=== PATIENT | male | born 1975 | race Caucasian/White ===

== ENCOUNTER → 2020-01-15 09:16 | Outpatient (BNVA) | payer OTHER, SELFPAY | PROVIDERS: Family Provider Nurse Practitioner Family; PCP Nurse Practitioner Family; Visit Provider Urology | DX: E29.1 Testicular hypofunction (principal); N41.1 Chronic prostatitis; N52.8 Other male erectile dysfunction | CPT/HCPCS: 81001 ==

== ENCOUNTER 2020-06-13 12:45 | Outpatient (CLI) | payer OTHER, SELFPAY ==
--- NOTE | 2020-06-13 13:00 | MR_ITS ---
WS: [id number] MRI LUMBAR SPINE NONCONTRAST TECHNIQUE: Sagittal T1, T2 and STIR imaging. Axial T1 and T2 imaging. CLINICAL INFORMATION: M51.16 Intervertebral disc disorders with radiculopathy, ... COMPARISON: MRI and CT FINDINGS: Mild lumbar curve. No acute compression. No high-grade central canal stenosis. L1-L2: Normal. L2-L3: Mild disc bulging with endplate ridging. Mild facet arthropathy. Spinal canal and foramen are patent. L3-L4: Mild disc bulging with slight impingement on the right subarticular recess and traversing righ t L4 nerve root. Mild facet arthropathy. Mild right greater than left foraminal narrowing. L4-L5: Mild disc bulging with a tiny shallow central protrusion. Slight effacement of ventral thecal sac. Mild to moderate facet arthropathy. Mild left foraminal narrowing. L5-S1: Right pericentral protrusion with slight impingement on the right S1 nerve root. Mild right an d no left foraminal narrowing. Mild facet arthropathy. Partially visualized right renal cyst measuring 1.7 CM. Visualized pelvic bony structures: Normal. Paravertebral soft tissues: Normal. MR/MR lumbar spine wo con* [id number] IMPRESSION: 1. Mild lumbar curve. No acute compression. No high-grade central canal stenos is. 2. Shallow disc protrusion L3-4 impinges the right subarticular recess with mi ld right foraminal narrowing. 3. Shallow central protrusion L4-5 with slight effacement of ventral thecal sa c and narrowing of the subarticular recess. Mild left foraminal narrowing. 4. Shallow right pericentral protrusion L5-S1 impinges the traversing right S1 nerve root. Recommend correlation for right S1 nerve root symptoms. Mild right foraminal narrowing. 5. Mild facet arthropathy L3-L5. 6. Overall no significant changes since 2019.
--- NOTE | 2020-06-13 13:00 | MR_ITS ---
WS: [id number] MRI THORACIC SPINE WITHOUT CONTRAST TECHNIQUE: Sagittal T1, T2 and STIR imaging. Axial T2 imaging. Noncontrast imaging obtained. CLINICAL INFORMATION: M51.16 Intervertebral disc disorders with radiculopathy, ... COMPARISON: None. FINDINGS: Mild thoracic curve. Mild thoracic kyphosis. No acute compression. No high-grade central canal stenos is. Cord signal is normal. A few Schmorl's nodes in the mid and lower thoracic spine. Mild chronic an terior wedging in the mid thoracic spine at T6 and T7. T2-3: Mild disc bulge with mild central canal stenosis. Mild facet arthropathy. Foramen are patent. T3-4: Tiny central disc protrusion. Mild facet arthropathy. Spinal canal and foramen are patent. T4-5: Tiny central disc protrusion. Spinal canal and foramen are patent. T5-6: Tiny central disc protrusion. Spinal canal and foramen are patent. Moderate facet arthropathy in the lower thoracic spine. Left renal cyst. Normal thoracic aorta.. MR/MR thoracic spin wo con* [id number] IMPRESSION: 1. Mild thoracic curve. Mild thoracic kyphosis. No acute compression. 2. Shallow central disc protrusion T2-3 with mild central canal stenosis. 3. Tiny central protrusions at T3-T4, T4-T5 and T5-T6 without significant spin al canal narrowing. 4. Chronic anterior wedging at T6-T7. No acute compression fractures. 5. Mild to moderate facet arthropathy lower thoracic spine.
--- NOTE | 2020-06-13 13:45 | XR_ITS ---
WS: [id number] Lumbar spine with flexion, extension, and neutral lateral, 06/13/2020 Clinical Data: lumbar pain Comparison: None. Findings: No compression fractures or subluxation is seen. No disc space narrowing is seen. No limitation of motion or subluxation is seen on flexion or extension.. There are limbus vertebra at L3 and L4. XR/XR lumbar spine f/e only [id number] Impression: Negative lateral lumbar spine.
--- NOTE | 2020-06-13 14:00 | XR_ITS ---
WS: [id number] Thoracic spine, 3 views, 06/13/2020 Clinical Data: thoracic pain Comparison: None. Findings: No compression fractures are seen. The disc heights are normal. The paravertebral areas are normal. XR/XR thoracic spine 3V* [id number] Impression: Negative thoracic spine.
== END 2020-06-13 12:46 | disposition home or self-care (01) ==
LOC: RADWPI 12:47
PROVIDERS: Family Provider Nurse Practitioner Family; PCP Nurse Practitioner Family; Visit Provider Specialist
DX: M51.16 Intervertebral disc disorders with radiculopathy, lumbar region (principal); M51.24 Other intervertebral disc displacement, thoracic region; M48.54XA Collapsed vertebra, not elsewhere classified, thoracic region, initial encounter for fracture; M47.814 Spondylosis without myelopathy or radiculopathy, thoracic region; M47.816 Spondylosis without myelopathy or radiculopathy, lumbar region; M51.27 Other intervertebral disc displacement, lumbosacral region
CPT/HCPCS: 72072; 72120; 72146; 72148

== ENCOUNTER 2020-06-26 07:01 | Outpatient (RCR) | payer OTHER, SELFPAY | END 2020-06-26 14:28 | disposition home or self-care (01) | LOC: SPT 07:01 | PROVIDERS: PCP Nurse Practitioner Family; Referring Provider Specialist; Visit Provider Specialist | DX: M51.17 Intervertebral disc disorders with radiculopathy, lumbosacral region (principal) | CPT/HCPCS: 97750 ==

== ENCOUNTER → 2020-07-15 13:33 | Outpatient (BNVA) | payer OTHER, SELFPAY | PROVIDERS: PCP Nurse Practitioner Family; Visit Provider Urology | DX: E29.1 Testicular hypofunction (principal); N52.8 Other male erectile dysfunction | CPT/HCPCS: 81001 ==

== ENCOUNTER → 2020-11-29 12:46 | Outpatient (BNVA) | payer OTHER, SELFPAY | PROVIDERS: PCP Nurse Practitioner Family; Visit Provider Nurse Practitioner | DX: Z20.828 Contact with and (suspected) exposure to other viral communicable diseases (principal) | CPT/HCPCS: 87635 ==

== ENCOUNTER → 2021-03-09 08:17 | Outpatient (BNVA) | payer OTHER, SELFPAY | PROVIDERS: PCP Nurse Practitioner Family; Visit Provider Urology | DX: Z12.5 Encounter for screening for malignant neoplasm of prostate (principal); E29.1 Testicular hypofunction; N41.1 Chronic prostatitis; N52.8 Other male erectile dysfunction | CPT/HCPCS: 81003; 84403; G0103 ==

== ENCOUNTER → 2021-09-08 10:23 | Outpatient (BNVA) | payer OTHER, SELFPAY | PROVIDERS: PCP Nurse Practitioner Family; Visit Provider Urology | DX: N41.1 Chronic prostatitis (principal); E29.1 Testicular hypofunction; N52.8 Other male erectile dysfunction | CPT/HCPCS: 81003; 84403 ==

== ENCOUNTER → 2021-10-08 13:09 | Outpatient (BNVA) | payer OTHER, SELFPAY | PROVIDERS: PCP Nurse Practitioner Family; Visit Provider Nurse Practitioner Family | DX: E29.1 Testicular hypofunction (principal) | CPT/HCPCS: 81003; 84403 ==

== ENCOUNTER → 2021-12-08 11:05 | Outpatient (BNVA) | payer OTHER, SELFPAY | PROVIDERS: PCP Nurse Practitioner Family; Visit Provider Urology | DX: N52.8 Other male erectile dysfunction (principal); E29.1 Testicular hypofunction; N41.1 Chronic prostatitis | CPT/HCPCS: 81003; 84403 ==

== ENCOUNTER 2022-08-12 09:14 | Outpatient (CLI) | payer OTHER, SELFPAY ==
[2022-08-12 10:17] LABS: PSA Screen - Urology 0.79 ng/mL (0-4)
== END 2022-08-12 09:15 | disposition home or self-care (01) ==
LOC: LAB 09:16
PROVIDERS: PCP Nurse Practitioner Family; Visit Provider Urology
DX: Z12.5 Encounter for screening for malignant neoplasm of prostate (principal)
CPT/HCPCS: 36415; G0103

== ENCOUNTER → 2022-08-26 10:37 | Outpatient (BNVA) | payer OTHER, SELFPAY | PROVIDERS: PCP Nurse Practitioner Family; Visit Provider Urology | DX: E29.1 Testicular hypofunction (principal); N41.1 Chronic prostatitis; N52.8 Other male erectile dysfunction | CPT/HCPCS: 81003 ==

== ENCOUNTER → 2022-11-01 11:14 | Outpatient (BNVA) | payer OTHER, SELFPAY | PROVIDERS: PCP Nurse Practitioner Family; Visit Provider Urology | DX: E29.1 Testicular hypofunction (principal) | CPT/HCPCS: 84403; 85025 ==

== ENCOUNTER → 2022-11-08 13:15 | Outpatient (BNVA) | payer OTHER, SELFPAY | PROVIDERS: PCP Nurse Practitioner Family; Visit Provider Urology | DX: N41.1 Chronic prostatitis (principal); E29.1 Testicular hypofunction; N52.8 Other male erectile dysfunction | CPT/HCPCS: 81003 ==

== ENCOUNTER → 2023-02-21 09:38 | Outpatient (BNVA) | payer OTHER, SELFPAY | PROVIDERS: PCP Nurse Practitioner Family; Visit Provider Urology | DX: R79.89 Other specified abnormal findings of blood chemistry (principal); E29.1 Testicular hypofunction | CPT/HCPCS: 84403 ==

== ENCOUNTER 2023-03-08 11:06 | Outpatient (CLI) | payer OTHER, SELFPAY ==
[2023-03-08 12:29] LABS: Alanine Aminotransferase 28 U/L (0-41); Albumin Level 4.7 g/dL (3.5-5.2); Alkaline Phosphatase 69 U/L (40-130); Aspartate Amino Transferase 37 U/L (0-40); Chol HDL Ratio 2.62 mg/dL (1.0-5.00); Cholesterol 181 mg/dL (0-200); Globulin 2.6 g/dL (1.3-4.6); HDL Cholesterol 69 mg/dL (60-100); LDL Cholesterol Calculated 103 mg/dL (50-129); LDL HDL Ratio 1.49 RATIO (0.00-3.22); Total Bilirubin 0.5 mg/dL (0.15-1.2); Total Protein 7.3 g/dL (6.6-8.7); Triglycerides 47 mg/dL (0-150)
== END 2023-03-08 11:07 | disposition home or self-care (01) ==
PROVIDERS: PCP Nurse Practitioner Family; Visit Provider Internal Medicine Cardiovascular Disease
DX: E78.5 Hyperlipidemia, unspecified (principal)
CPT/HCPCS: 36415; 80061; 80076; 81003

== ENCOUNTER → 2023-07-28 11:32 | Outpatient (BNVA) | payer OTHER, SELFPAY | PROVIDERS: PCP Nurse Practitioner Family; Visit Provider Internal Medicine Pulmonary Disease | DX: J30.2 Other seasonal allergic rhinitis (principal); R06.02 Shortness of breath; J40 Bronchitis, not specified as acute or chronic | CPT/HCPCS: 82785; 85025; 86003 ==

== ENCOUNTER 2023-08-17 08:53 | Outpatient (CLI) | payer OTHER, SELFPAY ==
--- NOTE | 2023-08-17 09:00 | CT_ITS ---
WS: [id number] CT CHEST TECHNIQUE: Noncontrast CT of the chest with coronal and sagittal reformatted images. CLINICAL INFORMATION: Chronic bronchitis COMPARISON: None. DLP: 451.[address] scans at [facility] use at least one of these dose optimization techniques: automated e xposure control; mA and/or kV adjustment per patient size (includes targeted exams where dose is matc hed to clinical indication); or iterative reconstruction. FINDINGS: Lungs are well aerated. No acute pulmonary infiltrates. No focal pneumonia or pleural fluid. No suspi cious pulmonary parenchymal opacities. A few calcified granulomas. Normal caliber thoracic aorta. No axillary lymphadenopathy. Diffuse fatty filtration of the liver. Adrenal glands are normal. Noncontra st spleen is normal. Normal GE junction. Schmorl's nodes in the midthoracic spine. Exophytic LEFT upp er pole renal cyst. IMPRESSION: 1. Lungs are well aerated. No acute pulmonary infiltrates. 2. No mediastinal or hilar lymphadenopathy. 3. Exophytic LEFT upper pole renal cyst measuring 1.7 cm. 4. Mild diffuse fatty infiltration of the liver. 5. No other acute findings.
== END 2023-08-17 08:54 | disposition home or self-care (01) ==
PROVIDERS: PCP Nurse Practitioner Family; Visit Provider Internal Medicine Pulmonary Disease
DX: J42 Unspecified chronic bronchitis (principal); R06.02 Shortness of breath
CPT/HCPCS: 71250; 94010; 94618; 94726; 94729

== ENCOUNTER 2023-09-07 13:35 | Outpatient (CLI) | payer OTHER, SELFPAY ==
--- NOTE | 2023-09-07 13:45 | US_ITS ---
WS: [id number] RENAL ULTRASOUND HISTORY: Renal cyst found on chest imaging COMPARISON: Chest CT 08/17/2023 TECHNIQUE: 2-D and color Doppler imaging of the kidney submitted. Right kidney: 11.4 cm x 5.4 cm x 5.8 cm. Cortex: 1.2 cm Normal echogenicity with no hydronephrosis or mass. Left kidney: 11.5 cm x 4.9 cm x 5.8 cm. Cortex: 1.3 cm Normal size kidney. Exophytic cyst from the upper pole LEFT kidney measures 1.8 x 1.6 x 1.8 cm. No ob struction. No solid mass. Aorta: Normal. Urinary Bladder: Bladder is only moderately distended. There is mild diffuse bladder wall thickening. No focal solid mass. Liver is very echogenic with coarse echotexture. Hepatic steatosis was also evident on the recent CT of 08/17/2023. IMPRESSION: 1. No renal obstruction or atrophy. 2. Simple cyst upper pole LEFT kidney maximum diameter of 1.8 cm. 3. Moderate hepatic steatosis.
== END 2023-09-07 13:36 | disposition home or self-care (01) ==
LOC: RAD 13:36
PROVIDERS: PCP Nurse Practitioner Family; Visit Provider Internal Medicine Pulmonary Disease
DX: N28.9 Disorder of kidney and ureter, unspecified (principal); N28.1 Cyst of kidney, acquired; K76.0 Fatty (change of) liver, not elsewhere classified
CPT/HCPCS: 76770